=== PATIENT | female | born 1995 | race African-American/Black ===

== ENCOUNTER 2017-03-03 15:48 | Emergency (ER) | payer OTHER ==
[~2017-03-03] VITALS: Ht 175.3 cm; Wt 77.1 kg
--- NOTE | ~2017-03-03 | EKG ---
[place] [address] [facility] [employer] [place] [address] ELECTROCARDIOGRAM REPORT Name: MAXIMILIAN AWAD Room #: DEP [facility]#: [id number] Admission: 03/03/17 Attend Phys: Discharge: 03/03/17 Date of : [birth year] Report #: [id number] THIS REPORT FOR: //name// [facility] ED Test Date: 2017-03-03 Test Time: 16:01:43 Pat Name: MAXIMILIAN AWAD Department: Room: Gender: F Education [employer] Sales Representative: STEFANIA : 1995 Requested By: Lauren Perla Order Number: [id number] MD: Favian Geronimo Measurements Intervals [place] Rate: 94 P: 63 IN: 159 QRS: 39 QRSD: 90 T: 14 QT: 362 QTc: 453 Interpretive Statements Sinus rhythm Borderline T abnormalities, inferior leads No previous ECG available for comparison Electronically Signed On 03-04-2017 15:07:38 CDT by Favian Geronimo [email or web address] <ELECTRONICALLY SIGNED> By: Favian Geronimo MD, LOCATED WITHIN [facility] 03/04/17 1507 1601 1601 Favian Geronimo MD, FACC /EPI
[2017-03-03] MEDS ORDERED: UNICOMPLEX M TA1 TA1 PO (16:03)
[2017-03-03 16:35] LABS: ABSOLUTE NEUTROPHILS 2.6 thou/uL (1.4-8.2); BASOPHILS 1.1 % (0.0-2.0); EOSINOPHILS 0.2 % (0.0-3.0); HEMATOCRIT 37.2 % (37.0-47.0); HEMOGLOBIN 12.4 gm/dL (12.0-15.0); LYMPHOCYTES 28.4 % (24.0-44.0); MCH 28.5 pg (26.0-34.0); MCHC 33.4 g/dL (28.0-37.0); MCV 85.4 fL (80.0-100.0); MONOCYTES 9.9 % (1.0-8.0); PLATELET COUNT 267 thou/uL (150-400); POLYS 60.4 % (36.0-66.0); RBC 4.35 mil/uL (4.20-5.00); RDW 15.1 % (10.5-14.5); WBC 4.4 thou/uL (4.0-11.0)
[2017-03-03 16:39] LABS: MANUAL DIFF NO
[2017-03-03 16:51] LABS: ANION GAP 11 mmol/L (7-16); BUN 10 mg/dL (7-18); CHLORIDE 106 mmol/L (98-107); CO2 24 mmol/L (21-32); CREATININE 0.5 mg/dL (0.6-1.0); GLUCOSE 92 mg/dL (74-106); POTASSIUM 3.7 mmol/L (3.5-5.1); SODIUM 141 mmol/L (136-145)
[2017-03-03 16:57] LABS: ALBUMIN 3.9 g/dL (3.4-5.0); ALKALINE PHOSPHATASE 88 U/L (46-116); SALICYLATE < 2.8 mg/dL (2.8-20.0); SGOT 23 U/L (15-37); SGPT 22 U/L (30-65); TOTAL BILIRUBIN 0.2 mg/dL (<0.1-1.0); TOTAL PROTEIN 8.2 g/dL (6.4-8.2); TROPONIN-I < 0.04 ng/mL (<0.04-0.07)
[2017-03-03 16:58] LABS: ACETAMINOPHEN < 2 ug/mL (10-30)
[2017-03-03 17:22] LABS: URINE BILIRUBIN NEGATIVE (Negative); URINE BLOOD NEGATIVE (Negative); URINE COLOR YELLOW; URINE GLUCOSE-RANDOM* NEGATIVE (Negative); URINE KETONES NEGATIVE (Negative); URINE NITRITE NEGATIVE (Negative); URINE PROTEIN (DIPSTICK) NEGATIVE (Negative); URINE UROBILINOGEN 0.2 E.U./dl (0.2-1.0)
[2017-03-03 18:00] LABS: AMP/METHAMP Negative (Negative); BARBITURATES Negative (Negative); BENZODIAZEPINES Negative (Negative); COCAINE Negative (Negative); METHADONE Negative (Negative); OPIATES Negative (Negative); PCP Negative (Negative); THC Negative (Negative)
[2017-03-03 20:49] VITALS: BP 119/65
== END 2017-03-03 20:50 | disposition home or self-care (01) ==
LOC: ER 15:48
PROVIDERS: Physician Assistant
DX: F10.129 Alcohol abuse with intoxication, unspecified (principal); Y90.9 Presence of alcohol in blood, level not specified